=== PATIENT | female | born 1995 | race Caucasian/White ===

== ENCOUNTER 2018-05-29 11:05 | Emergency (ER) | payer SELFPAY ==
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
[2018-05-29 12:21] LABS: ABS Basophils 0 10^3/ul (0-0.2); ABS Eosinophils 0.1 10^3/ul (0-0.6); ABS Lymphocytes 1.1 10^3/ul (1.0-4.8); ABS Monocytes 0.3 10^3/ul (0-0.8); ABS Neutrophils 3.5 10^3/ul (1.5-7.7); ABS Nucleated RBC 0 10^3/ul; Eosinophil % 1.5 %; Hematocrit 41 % (33-41); Mean Corpuscular HGB Conc 34 g/dL (31-36); Mean Corpuscular Hemoglobin 31 pg (27-31); Mean Corpuscular Volume 90 fL (80-97); Mean Platelet Volume 8.6 fL (7.4-10.4); Nucleated Red Blood Cells % 0; Platelet Count 191 10^3/uL (150-450); Red Blood Count 4.56 10^6 /uL (3.70-4.87); Red Cell Distribution Width 15 % (10.5-15)
[2018-05-29 12:33] LABS: Activated Partial Thrombo Time 31.3 seconds (26.0-36.3); INR 0.96 (0.77-1.02)
[2018-05-29 12:52] LABS: Albumin 4.3 g/dL (3.2-5.2); Albumin/Globulin Ratio 1.7 (1-3); BUN/Creatinine Ratio 17.9 (8-20); Calcium 9.3 mg/dL (8.6-10.3); EGFR African American 134.4 (>60); EGFR Non-African American 111.1 (>60); Globulin 2.5 g/dL (2-4); HDL Cholesterol 54.7 mg/dL; Potassium 3.8 mmol/L (3.5-5.0); Total Bilirubin 0.5 mg/dL (0.2-1.0); Total Protein 6.8 g/dL (6.4-8.9)
[2018-05-29 13:22] LABS: Urine Appearance Cloudy; Urine Bacteria Absent (Absent); Urine Bilirubin Negative (Negative); Urine Blood 3+ (Negative); Urine Color Yellow; Urine Glucose Negative (Negative); Urine Ketones Negative (Negative); Urine Nitrite Negative (Negative); Urine Protein Negative (Negative); Urine Red Blood Cell Absent (Absent); Urine Specific Gravity 1.015 (1.010-1.030); Urine Squamous Epithelial Cell Present (Absent); Urine Urobilinogen Negative (Negative); Urine White Blood Cell 1+(6-10/hpf) (Absent)
--- NOTE | 2018-05-29 14:39 | CONS ---
NEUROLOGY CONSULTATION NOTE: DATE OF CONSULT: 05/29/18 CONSULTING PROVIDER: Dr. Grant. REASON FOR CONSULT: Activating a code esqueda to evaluate for sudden-onset left- sided numbness. CHIEF COMPLAINT: "My left side feels heavy and numbness on the left face." HISTORY OF PRESENT ILLNESS: Mrs. Cassie Ochoa is a 23-year-old young female with no significant past medical history who resides with her friend's adoptive mom, who occasionally has pressure-like pain in the head who presents with a sudden- onset numbness in the left cheek and a heavy sensation on the left arm. This is associated with slight head pain that she described as generalized pressure with no associated visual symptoms or nausea. The symptoms started at 9:30, she was completely normal by 9:25. She was with her friend, who recommended that she come to the ER for further evaluation. She has had similar symptoms without the numbness in the past, for which she was hospitalized for generalized feeling of malaise in the setting of head pressure. She was never further evaluated extensively for these symptoms. She has no history of sudden-onset vision loss, swallowing difficulty, or impairment in her bowel or bladder functions. She has no symptoms of pee intolerance. Her NIH stroke scale was 1 for decreased sensation in the left face and left arm. The patient has no history of epilepsy or stroke. She has no risk factors to suspect seizures given the lack of head trauma in the past or family history of seizures. She denied any history of meningitis or encephalitis. She denied any nausea, vomiting, dizziness, tinnitus, or vertigo. PAST MEDICAL HISTORY: No significant medical history. PAST SURGICAL HISTORY: None. MEDICATIONS: None. ALLERGIES: PENICILLIN. FAMILY HISTORY: She does not interact with her parents. SOCIAL HISTORY: She lives with her friend's adoptive parents. She does not interact with her parents. She smokes marijuana and tobacco daily. She denied any excessive alcohol use. She denied any drug use. REVIEW OF SYSTEMS: A 14-point review of systems was obtained and otherwise negative except for what was mentioned in the HPI. PHYSICAL EXAMINATION: Vitals: Temperature of 97.9, heart rate 74, respiratory rate 18, oxygen saturation of 98%, blood pressure 115/66. General: A well- nourished, well-developed female who is in no acute distress. Head: Normocephalic without obvious abnormality. Eyes: Conjunctivae/corneas are clear. Neck: Supple and symmetrical with no carotid bruit. Lungs: Clear to auscultation bilaterally. Cardiovascular: Regular rate and rhythm with normal S1, S2. Extremities: Normal range of motion with no cyanosis. Skin: No skin lesions or lacerations. She has generalized tattoos. Psych: Affect is broad and some inappropriate laughter throughout the interview; otherwise, the mood is normal. She denied any suicidal or homicidal ideation. Easy to establish report. Neurological Examination: Mental Status: Awake, alert, and oriented to person, place, time, and general circumstances. Speech and language including expression, naming, repetition, and comprehension were assessed and found to be normal. Cranial Nerves: Normal confrontation testing bilaterally. Pupils are midrange and reactive to light. Extraocular muscles are intact. Sensation is reduced on the left side of the face to light touch and pinprick, in the V2 distribution. She has no facial droop. She is able to hear throughout the history process. Symmetrical palatal elevation. Tongue is symmetric in midline with no atrophy or fasciculation. Motor Examination: No abnormal movements or pronator drift. She has 5/5 strength in the upper and lower extremities. No evidence of spasticity. Reflexes: Right/left brachioradialis 2/2, biceps 2/2, triceps 2/2, patella 2/2, ankle 2/2, plantar flexor/flexor. Sensation is intact to light touch throughout. Normal vibration and proprioception at the great toes. Coordination: Normal [id number] and rapid alternating movement. Gait: Narrow based and normal stance. No ataxia. ASSESSMENT AND RECOMMENDATION: Mrs. Cassie Ochoa is a 23-year-old female who has history of pressure pain, who presents with sudden onset of left numbness in the face and arm as well as a heavy sensation of the left upper and lower extremities. On examination, she has no focal neurological deficit other than the subjective numbness on the left side of the face in the V2 distribution. NIH stroke scale was 1. She was not a candidate for IV tPA or mechanical thrombectomy as the diagnosis of stroke is low on the differential and we suspect that she has complicated migraine headache. She has no evidence of meningitis. She has no evidence of cervical myelopathy given her examination and the lack of neck pain. We should evaluate for underlying demyelinating disease given her age. Other less likely diagnoses include vitamin deficiencies such as B12 deficiency. RECOMMENDATION: Obtain an MRI of the brain with/without contrast to evaluate for demyelinating disease or possible thalamic infarct on the right. I would not treat her with antiplatelet therapy at this time unless the MRI is positive for stroke, which is less likely. I would also obtain an EEG to evaluate for any sensory-like seizures which again is low on the differential. She has no risk factor for epilepsy as she denied any head trauma or any family history of seizures. Please perform neuro checks every 4 hours. Please obtain a vitamin B12 and TSH levels. Continue supportive care. If the patient is here overnight , Dr. Anmol Perla will be taking over the neurology service starting tomorrow , and he can see her then. TIME SPENT: I spent a total of 60 minutes of which more than 50% was spent obtaining history, examining the patient, and discussing the treatment plan as mentioned above. [id number]/CPS #: [id number] MTDD
[2018-05-29 15:03] LABS: TSH (Thyroid Stimulating Horm) 1.79 mcIU/mL (0.34-5.60)
[2018-05-29] MEDS ORDERED: Gadoteridol* (CONTRAST) 279.3 MG/ML 10 ML IV ONE (15:54)
[2018-05-29 18:48] VITALS: BP 122/81
== END 2018-05-29 18:47 | disposition home or self-care (01) ==
LOC: ED 11:05
DX: R20.2 Paresthesia of skin (principal); Z88.0 Allergy status to penicillin; F41.9 Anxiety disorder, unspecified; R51 Headache
CPT/HCPCS: 36415; 70450; 70553; 71045; 80053; 80061; 81003; 81015; 82607; 83605; 84443; 84484; 85025; 85610; 85730; 86703; 87086; 93005; 99284; A9579

== ENCOUNTER 2018-06-01 13:15 | Emergency (ER) | payer BC, OTHER ==
[2018-06-01] MEDS ORDERED: ALPRAZolam TAB* 0.5 MG PO ONE (13:39)
--- NOTE | 2018-06-01 14:01 | ED ---
Complex/Multi-Sys Presentation - HPI Summary HPI Summary: Pt is a 23 y/o F presenting to the ED with a chief complaint of L-sided weakness. She was longboarding this morning when her L shoulder felt stiff, the L side of her face felt weird, she experienced dizziness, and she called EMS. Her L side progressively became heavier, and when she tried to stand her L leg gave out and her R leg started to become weak. She reports the main area of numbness/tingling in her L thigh/hip. She denies falling, headache, photophobia , fever, chills, erythema of eyes, sore throat, CP, sob, cough, abd pain, n/v, dysuria, hematuria, myalgia, edema, or rash. She reports dizziness, L-sided weakness/numbness/tingling, and numbness in the center of her forehead. She also reports smoking marijuana today, but states she smokes it every day to help with her appetite/anxiety, and today was no different. - History Of Current Complaint Chief Complaint: EDSubstanceAbuse Time Seen by Provider: 06/01/18 13:19 Hx Obtained From: Patient Onset/Duration: Sudden Onset, Lasting Hours, Still Present Timing: Constant, Hours Severity Currently: Moderate Severity Initially: Moderate Aggravating Factor(s): none Alleviating Factor(s): none Associated Signs And Symptoms: Positive: Dizziness, Weakness. Negative: Headache, SOB, Chest Pain, Edema, Nausea, Vomiting, Abdominal Pain, Fever - Allergies/Home Medications Allergies/Adverse Reactions: Allergies Allergy/AdvReac Type Severity Reaction Status Date / Time Penicillins Allergy Unknown Verified 05/29/18 11:06 Reaction Details PMH/Surg Hx/FS Hx/Imm Hx Previously Healthy: Yes Cardiovascular History: Denies: Hx Pacemaker/ICD History: Denies: Hx Dialysis Sensory History: Denies: Hx Hearing Aid Psychiatric History: Reports: Hx Anxiety Denies: Hx Panic Disorder Infectious Disease History: No Infectious Disease History: Denies: Traveled Outside the [place] in Last 30 Days - Family History Known Family History: Positive: Other - EtOH abuse, mental illness - Social History Alcohol Use: None Hx Substance Use: Yes Substance Use Type: Reports: Marijuana Substance Use Comment - Amount & Last Used: daily Hx Tobacco Use: Yes Smoking Status (MU): Light Every Day Tobacco Smoker Review of Systems Negative: Fever, Chills Negative: Erythema Negative: Sore Throat Negative: Chest Pain Negative: Shortness Of Breath, Cough Negative: Abdominal Pain, Vomiting, Nausea Negative: dysuria, hematuria Negative: Myalgia, Edema Negative: Rash Neurological: Other - dizziness Positive: Headache, Weakness, Paresthesia, Numbness All Other Systems Reviewed And Are Negative: Yes Physical Exam - Summary Physical Exam Summary: Constitutional: Well-developed, Well-nourished, Alert. (-) Distressed. Skin: Warm, Dry. Pt has numerous facial piercings HENT: Normocephalic; Atraumatic Eyes: Conjunctiva normal, pupils 8mm bilat Neck: Musculoskeletal ROM normal neck. (-) JVD, (-) Stridor, (-) Tracheal deviation Cardio: Rhythm regular, rate normal, Heart sounds normal; Intact distal pulses; The pedal pulses are 2+ and symmetric. Radial pulses are 2+ and symmetric. (-) Murmur Pulmonary/Chest wall: Effort normal. (-) Respiratory distress, (-) Wheezes, (-) Rales Abd: Soft, (-) tenderness, (-) Distension, (-) Guarding, (-) Rebound Musculoskeletal: (-) Edema. Symmetric leg strength with coaching. Lymph: (-) Cervical adenopathy Neuro: Alert, Oriented x3 Psych: Mood and affect Normal, pt is laughing Triage Information Reviewed: Yes Vital Signs On Initial Exam: Initial Vitals Temp Pulse Resp BP Pulse Ox 99 F 115 16 144/99 100 06/01/18 13:30 06/01/18 13:30 06/01/18 13:30 06/01/18 13:30 06/01/18 13:30 Vital Signs Reviewed: Yes Diagnostics - Vital Signs Vital Signs Temp Pulse Resp BP Pulse Ox 06/01/18 13:52 18 06/01/18 13:30 99 F 115 16 144/99 100 - Laboratory Result Diagrams: 06/01/18 13:53 06/01/18 13:53 Lab Statement: Any lab studies that have been ordered have been reviewed, and results considered in the medical decision making process. - EKG 1340 Cardiac Rate: Tachycardia - 107bpm EKG Rhythm: Sinus Tachycardia ST Segment: Normal Ectopy: None Re-Evaluation - Re-Evaluation 1st re-eval Re-Evaluation Time: 15:20 Change: Improved Comment: The pt reports feeling much better and ambulated around the ED without any issues. Complex Multi-Symp Course/Dx Course Of Treatment: Pt is a 23 y/o F presenting to the ED with a chief complaint of L-sided weakness. She reports the main area of numbness/tingling in her L thigh/hip. She denies falling, headache, photophobia, fever, chills, erythema of eyes, sore throat, CP, sob, cough, abd pain, n/v, dysuria, hematuria , myalgia, edema, or rash. She reports dizziness, L-sided weakness/numbness/ tingling, and numbness in the center of her forehead. She also reports smoking marijuana today, but states she smokes it every day to help with her appetite/ anxiety, and today was no different. In the ED course, the pt was given Alprazolam. I have seen this patient twice this week shortly after she has smoked marijuana, with significant anxiety, tachycardia, and vague neurological sx. In this case, her sx are bilateral and migratory. I do not suspect anatomic distribution of vascular occlusion. Her sx are very directly correlated with her marijuana use. She ambulated in the ED without any issues at 1520, and will be d/c'ed with a dx of marijuana abuse, anxiety, and weakness, as well as instructions to follow up with Dr. Jama, [facility], and [facility]. - Diagnoses Provider Diagnoses: Marijuana abuse, Anxiety, Weakness Discharge - Sign-Out/Discharge Documenting (check all that apply): Patient Departure Patient Received Moderate/Deep Sedation with Procedure: No - Discharge Plan Condition: Stable Disposition: HOME Referrals: [facility] [Outside] Dago Jama MD [Medical Doctor] - [facility] [Outside] Additional Instructions: Please follow up with Dr. Jama of neurology in 2-3 days, [facility] , and [facility]. Return to the ED with any new or worsening symptoms. - Attestation Statements Document Initiated by Scribe: Yes Documenting Scribe: Marcy Nagel Provider For Whom Scribe is Documenting (Include Credential): Shamir Grant MD. Scribe Attestation: IMarcy, scribed for Shamir Grant MD. on 06/01/18 at 1522. Status of Scribe Document: Ready
[2018-06-01 14:03] LABS: ABS Basophils 0 10^3/ul (0-0.2); ABS Eosinophils 0.1 10^3/ul (0-0.6); ABS Monocytes 0.3 10^3/ul (0-0.8); ABS Neutrophils 3.3 10^3/ul (1.5-7.7); ABS Nucleated RBC 0 10^3/ul; Eosinophil % 1.1 %; Hematocrit 42 % (33-41); Hemoglobin 14.3 g/dL (12.0-16.0); Mean Corpuscular HGB Conc 34 g/dL (31-36); Mean Corpuscular Hemoglobin 31 pg (27-31); Mean Corpuscular Volume 90 fL (80-97); Mean Platelet Volume 8.6 fL (7.4-10.4); Nucleated Red Blood Cells % 0.1; Platelet Count 216 10^3/uL (150-450); Red Blood Count 4.67 10^6 /uL (3.70-4.87); Red Cell Distribution Width 14 % (10.5-15); White Blood Count 4.7 10^3/uL (3.5-10.8)
[2018-06-01 14:28] LABS: ALT 8 U/L (7-52); AST 13 U/L (13-39); Albumin 4.7 g/dL (3.2-5.2); Albumin/Globulin Ratio 1.8 (1-3); Alkaline Phosphatase 58 U/L (34-104); Anion Gap 8 mmol/L (2-11); Blood Urea Nitrogen 13 mg/dL (6-24); CO2 Carbon Dioxide 25 mmol/L (22-32); Calcium 9.8 mg/dL (8.6-10.3); Chloride 107 mmol/L (101-111); EGFR Non-African American 89.3 (>60); Globulin 2.6 g/dL (2-4); Glucose 112 mg/dL (70-100); Potassium 3.7 mmol/L (3.5-5.0); Sodium 140 mmol/L (135-145); Total Protein 7.3 g/dL (6.4-8.9)
[2018-06-01 14:33] LABS: Acetaminophen < 15 mcg/mL; Alcohol < 10 mg/dL (<10); Salicylate < 2.50 mg/dL (<30)
[2018-06-01 16:50] VITALS: BP 113/68
== END 2018-06-01 16:50 | disposition home or self-care (01) ==
LOC: ED 13:15
DX: R53.1 Weakness (principal); F41.9 Anxiety disorder, unspecified; F12.10 Cannabis abuse, uncomplicated; F17.210 Nicotine dependence, cigarettes, uncomplicated; R00.0 Tachycardia, unspecified; Z88.0 Allergy status to penicillin
CPT/HCPCS: 36415; 80053; 80320; 80329; 83605; 85025; 93005; 99283; A9270-GY; G0480